=== PATIENT | male | born 1955 | race Caucasian/White ===

== ENCOUNTER 2016-12-27 10:37 | Outpatient (CLI) | payer MEDICARE, OTHER ==
--- NOTE | 2016-12-27 17:58 | XRAY Report ---
EXAM: LEFT KNEE RADIOGRAPHY EXAM DATE: 12/27/2016 11:10 AM. CLINICAL HISTORY: L KNEE PAIN AND POPPING. COMPARISON: None. TECHNIQUE: 3 views. FINDINGS: Bones: Normal. No fractures or bone lesions. Joints: Small joint effusion in the left knee. Soft Tissues: Normal. No soft tissue swelling. IMPRESSION: Small joint effusion. [facility] Referring Provider Line: [phone] SITE ID: [id number]
== END 2016-12-27 10:38 | disposition home or self-care (01) ==
LOC: DI 10:37
PROVIDERS: ATTEND Family Medicine
DX: M25.462 Effusion, left knee (principal)

== ENCOUNTER 2017-05-25 09:23 | Outpatient (CLI) | payer MEDICARE, OTHER ==
--- NOTE | 2017-05-25 22:52 | XRAY Report ---
EXAM: CHEST RADIOGRAPHY EXAM DATE: 05/25/2017 09:35 AM. CLINICAL HISTORY: COPD. COMPARISON: 11/24/2012. TECHNIQUE: 2 views. FINDINGS: Lungs/Pleura: Lungs are well-expanded. No evidence of consolidation or effusion. No pneumothorax. Sta ble left apical emphysematous bleb. Mediastinum: Heart and mediastinal contours are unremarkable. Other: Relatively stable opacity projecting over the T5 vertebral body on lateral view. This could re present a bone island. IMPRESSION: 1. Lungs are well expanded. 2. Stable left apical emphysematous bleb. 3. No acute intrathoracic plain film abnormality. [facility] Referring Provider Line: [phone] SITE ID: [id number]
== END 2017-05-25 09:24 | disposition home or self-care (01) ==
LOC: DI 09:23
PROVIDERS: ATTEND Internal Medicine
DX: J43.9 Emphysema, unspecified (principal)
CPT/HCPCS: 71020

== ENCOUNTER 2017-08-31 12:11 | Inpatient (IN) | payer MEDICARE, OTHER ==
[2017-08-31 13:03] LABS: BASOPHILS # (AUTO) 0.2 10^3/uL (0.0-0.1); EOSINOPHILS # (AUTO) 0.4 10^3/uL (0.0-0.7); EOSINOPHILS % (AUTO) 4.5 %; HGB - HEMOGLOBIN 13.5 g/dL (14.0-18.0); LYMPHOCYTES # (AUTO) 1.9 10^3/uL (1.5-3.5); LYMPHOCYTES % (AUTO) 20.9 %; MEAN CORPUSCULAR HEMOGLOBIN 32.6 pg (27.0-31.0); MEAN CORPUSCULAR HGB CONC 35.1 g/dL (32.0-36.0); MEAN CORPUSCULAR VOLUME 92.8 fL (80.0-94.0); MEAN PLATELET VOLUME 7.6 fL (7.4-11.4); MONOCYTES # (AUTO) 0.9 10^3/uL (0.0-1.0); MONOCYTES % (AUTO) 9.6 %; NEUTROPHILS # (AUTO) 5.6 10^3/uL (1.5-6.6); PLT - PLATELET COUNT 378 10^3/uL (130-450); RED BLOOD COUNT 4.15 10^6/uL (4.70-6.10); WHITE BLOOD COUNT 8.9 x10^3/uL (4.8-10.8)
[2017-08-31 13:14] LABS: ALBUMIN 3.8 g/dL (3.2-5.5); BILIRUBIN,TOTAL 0.8 mg/dL (0.2-1.0); CREATININE 0.9 mg/dL (0.6-1.2); TOTAL PROTEIN 7.8 g/dL (6.7-8.2)
--- NOTE | 2017-08-31 13:33 | ED Physician Documentation ---
PD HPI ABD PAIN - Stated complaint Stated Complaint: UPPER ABD PX - Chief complaint Chief Complaint: Abd Pain - History obtained from History obtained from: Patient, Family - History of Present Illness Timing - onset: How many days ago (2) Timing - duration: Days (2) Timing - details: Gradual onset Pain level max: 9 Pain level now: 2 Quality: Aching, Pain Location: Epigastric Radiation: Other (mid back) Improved by: Laying still Worsened by: Eating Associated symptoms: Nausea. No: Fever, Vomiting, Hematemesis, Diarrhea, Constipation, Melena, Hematochezia, Dysuria, Hematuria, Chest pain, Dizzy, Near syncope / syncope Similar symptoms before: Has not had sx before Recently seen: Not recently seen Review of Systems Ten Systems: 10 systems reviewed and negative Constitutional: denies: Fever, Chills Ears: denies: Ear pain Nose: denies: Rhinorrhea / runny nose, Congestion Throat: denies: Sore throat Cardiac: denies: Chest pain / pressure, Palpitations Respiratory: denies: Cough, Wheezing Skin: denies: Rash Musculoskeletal: denies: Neck pain, Back pain Neurologic: denies: Headache PD PAST MEDICAL HISTORY - Past Medical History Cardiovascular: Hypertension, Arrhythmia Respiratory: COPD, Shortness of breath Endocrine/Autoimmune: None GI: GERD, Colon polyps : Frequency HEENT: Chronic sinusitis Psych: Post traumatic stress disorder Musculoskeletal: Osteoarthritis, Chronic back pain - Past Surgical History Past Surgical History: Yes General: EGD, Colonoscopy Derm: Skin cancer surgery - Present Medications Home Medications: Ambulatory Orders Medication Instructions Recorded Confirmed Cholecalciferol (Vitamin D3) 1,000 unit PO DAILY 04/06/13 10/10/15 [Vitamin D] Diltiazem HCl [Diltiazem 24Hr Cd] 240 mg PO DAILY 04/06/13 08/31/17 EPINEPHrine [Epipen] 0.3 mg IM ONCE 04/06/13 10/10/15 Ibuprofen 800 mg PO Q6H PRN 04/06/13 10/10/15 Naproxen [Aleve] 500 mg PO Q6H PRN 04/06/13 10/10/15 Nortriptyline HCl 50 mg PO HS 04/06/13 08/31/17 Omeprazole 20 mg PO DAILY 04/06/13 08/31/17 Valacyclovir HCl [Valacyclovir] 400 mg PO BID 04/06/13 10/10/15 oxyCODONE [Roxicodone] 5 mg PO Q4-6H PRN #15 tablet 05/11/14 08/31/17 diazePAM [Valium] 2.5 mg PO Q8H PRN 08/31/17 08/31/17 hydroCHLOROthiazide 25 mg PO DAILY 08/31/17 08/31/17 [Hydrochlorothiazide] - Allergies Allergies/Adverse Reactions: Allergies Allergy/AdvReac Type Severity Reaction Status Date / Time morphine Allergy Severe Emesis Verified 08/31/17 19:12 latex Allergy Intermediate Rash Verified 08/31/17 12:31 pseudoephedrine HCl * Allergy Intermediate Rash Verified 08/31/17 12:31 [From Sudafed] bee sting AdvReac Severe Respiratory Uncoded 08/31/17 12:31 - Social History Does the pt smoke?: Yes Smoking Status: Current every day smoker Does the pt drink ETOH?: No Does the pt have substance abuse?: No - Immunizations Immunizations are current?: Yes Immunizations: TDAP current <10years - POLST Patient has POLST: No PD ED PE NORMAL - Vitals Vital signs reviewed: Yes - General General: Alert and oriented X 3, No acute distress - HEENT HEENT: Moist mucous membranes - Neck Neck: Supple, no meningeal sign - Cardiac Cardiac: RRR, Strong equal pulses - Respiratory Respiratory: No respiratory distress, Clear bilaterally - Abdomen Abdomen: Soft, Non distended, Other (TTP epigastric and RUQ. neg llamas's sign) - Back Back: No CVA TTP, No spinal TTP - Derm Derm: Warm and dry - Extremities Extremities: No edema - Neuro Neuro: Alert and oriented X 3 - Psych Psych: Normal mood, Normal affect Results - Vitals Vitals: Vital Signs - 24 hr 08/31/17 08/31/17 08/31/17 12:28 14:57 16:22 Temperature 36.2 C L Heart Rate 77 86 84 Respiratory 16 12 12 Rate Blood Pressure 113/68 120/79 128/77 O2 Saturation 98 97 100 Oxygen O2 Source Room air - EKG (time done) 1416 Rate: Rate (enter#) (77) Rhythm: NSR [employer]: Normal Intervals: Normal SD QRS: Normal Ischemia: Non specific changes - Labs Labs: Laboratory Tests 08/31/17 08/31/17 08/31/17 12:50 12:50 13:42 WBC 8.9 RBC 4.15 L Hgb 13.5 L Hct 38.5 L MCV 92.8 MCH 32.6 H MCHC 35.1 RDW 13.0 Plt Count 378 MPV 7.6 Neut # 5.6 Lymph # 1.9 [place] # 0.9 Eos # 0.4 Baso # 0.2 H Absolute Nucleated RBC 0.00 Nucleated RBC % 0.0 Sodium 138 Potassium 3.7 Chloride 97 L Carbon Dioxide 27 Anion Gap 14.0 H BUN 14 Creatinine 0.9 Estimated GFR (MDRD) 86 L Glucose 139 H Calcium 9.0 Total Bilirubin 0.8 AST 144 H ALT 86 H Alkaline Phosphatase 246 H Troponin I < 0.04 Total Protein 7.8 Albumin 3.8 Globulin 4.0 Albumin/Globulin Ratio 1.0 Lipase 359 H - Rads (name of study) RUQ US Radiology: Prelim report reviewed, EMP read contemporaneously, See rad report ( Hepatic steatosis. Cholelithiasis with wall thickening and pericholecystic fluid concerning for cholecystitis. Mildly dilated common bile duct. ) PD MEDICAL DECISION MAKING - ED course Complexity details: reviewed results, re-evaluated patient, considered differential, d/w patient, d/w family, d/w building consultant ED course: Patient is a 62-year-old male who presents to the emergency department with pancreatitis. Pain greatly improved in the emergency department without the addition of pain medications. Sounds as if he is having biliary colic, passing small stones that become lodged and then passed on their own. May have early mild cholecystitis, discussed the case with Dr. Andrade, surgery on-call who will place the patient in observation for reassessment in the morning to determine need for cholecystectomy. Patient declines any pain medication here. Discussed antibiotics with Dr. Andrade she will order them This document was made in part using voice recognition software. While efforts are made to proofread this document, sound alike and grammatical errors may occur. Departure - Departure Disposition: ED Place in Observation Clinical Impression: Biliary colic Pancreatitis Qualifiers: Chronicity: acute Pancreatitis type: biliary Acute pancreatitis complication: no infection or necrosis Qualified Code(s): K85.10 - Biliary acute pancreatitis without necrosis or infection Condition: Stable Discharge Date/Time: 08/31/17 18:29
[2017-08-31] MEDS ORDERED: SODIUM CHLORIDE 0.9% 1,000 ML IV ONE (15:09)
--- NOTE | 2017-08-31 17:38 | Ultrasound Report ---
EXAM: ABDOMEN ULTRASOUND LIMITED, RUQ EXAM DATE: 08/31/2017 05:12 PM. CLINICAL HISTORY: RUQ pain. COMPARISON: None. TECHNIQUE: Real-time scanning was performed with static images obtained. FINDINGS: Liver: Normal in size . Hyperechoic heterogeneous echotexture. 18.6 cm. Main portal vein flow: Hepato petal. Gallbladder: Multiple mobile gallstones. Abnormal wall thickening. No point tenderness. Sliver perich olecystic fluid. Biliary System: CBD measures 7 mm. Mildly dilated. Other: Visualized pancreas and right kidney are unremarkable. IMPRESSION: 1. Hepatic steatosis. 2. Cholelithiasis with wall thickening and pericholecystic fluid concerning for cholecystitis. 3. Mildly dilated common bile duct. [facility] Referring Provider Line: [phone] SITE ID: [id number]
[2017-08-31] MEDS ORDERED: ONDANSETRON ODT 4 MG TABLET TL PRN (17:41)
[2017-08-31] MEDS ORDERED: MORPHINE 2 MG/ML CARPUJECT IVP PRN (17:41)
[2017-08-31] MEDS ORDERED: SODIUM CHLORIDE FLUSH 0.9% 10 ML SYRINGE IVP PRN (17:41)
[2017-08-31] MEDS: LACTATED RINGERS 1,000 ML IV SCH (19:49)
[2017-08-31] MEDS: AMPICILLIN/SULBACTAM 3 GM in SODIUM CHLORIDE 0.9% MINIBAG 100 ML IV SCH (19:50)
[2017-08-31] MEDS: SODIUM CHLORIDE FLUSH 0.9% 10 ML SYRINGE IVP SCH (22:41)
[2017-09-01] MEDS: AMPICILLIN/SULBACTAM 3 GM in SODIUM CHLORIDE 0.9% MINIBAG 100 ML IV SCH ×4 (02:37→17:01)
[2017-09-01] MEDS: HYDROcod/ACETAM 5/325 MG TABLET PO PRN ×2 (03:26→17:01)
[2017-09-01] MEDS: SODIUM CHLORIDE FLUSH 0.9% 10 ML SYRINGE IVP SCH ×3 (03:46→18:58)
[2017-09-01 06:08] LABS: ALBUMIN 3.3 g/dL (3.2-5.5); ALBUMIN/GLOBULIN RATIO 0.9 (1.0-2.2); BILIRUBIN,TOTAL 3.3 mg/dL (0.2-1.0); CALCIUM 8.5 mg/dL (8.5-10.3); CREATININE 0.8 mg/dL (0.6-1.2); TOTAL PROTEIN 6.8 g/dL (6.7-8.2)
[2017-09-01 06:12] LABS: BASOPHILS # (AUTO) 0.1 10^3/uL (0.0-0.1); EOSINOPHILS # (AUTO) 0.1 10^3/uL (0.0-0.7); EOSINOPHILS % (AUTO) 1.6 %; HGB - HEMOGLOBIN 13.7 g/dL (14.0-18.0); LYMPHOCYTES # (AUTO) 0.9 10^3/uL (1.5-3.5); LYMPHOCYTES % (AUTO) 10.1 %; MEAN CORPUSCULAR HEMOGLOBIN 32.5 pg (27.0-31.0); MEAN CORPUSCULAR HGB CONC 33.5 g/dL (32.0-36.0); MEAN CORPUSCULAR VOLUME 96.9 fL (80.0-94.0); MEAN PLATELET VOLUME 8.5 fL (7.4-11.4); MONOCYTES % (AUTO) 11.1 %; NEUTROPHILS # (AUTO) 6.7 10^3/uL (1.5-6.6); NEUTROPHILS % (AUTO) 76.2 %; PLT - PLATELET COUNT 338 10^3/uL (130-450); RED BLOOD COUNT 4.22 10^6/uL (4.70-6.10); RED CELL DISTRIBUTION WIDTH 13.3 % (12.0-15.0); WHITE BLOOD COUNT 8.7 x10^3/uL (4.8-10.8)
[2017-09-01] MEDS: LACTATED RINGERS 1,000 ML IV SCH ×2 (06:30→19:01)
[2017-09-01] MEDS: FAMOTIDINE 20 MG TABLET PO SCH (09:07)
[2017-09-01] MEDS: hydroCHLOROthiazide 25 MG TABLET PO SCH (09:07)
[2017-09-01] MEDS: diltiaZEM CD 240 MG CAPSULE PO SCH (09:07)
[2017-09-01] MEDS: POLYETHYLENE GLYCOL 3350 17 GM PACKET PO SCH (09:07)
--- NOTE | 2017-09-01 11:57 | HISTORY & PHYSICAL EXAMINATION ---
Chief Complaint - Chief Complaint Chief Complaint: abdominal pain Abdominal Pain HPI - History of Present Illness HPI Comment/Other: This is a 62-year-old gentleman who presented to the emergency department yesterday with complaints of right upper quadrant and epigastric pain since 10 AM yesterday morning. He states he has had had similar but much less severe episodes for the past couple of years. Upon evaluation in the emergency department an ultrasound of the gallbladder was performed which demonstrated evidence of cholelithiasis without evidence of choledocholithiasis. His LFTs and lipase were noted to be elevated. A surgical consultation was obtained. Upon my evaluation of the patient he is resting in bed comfortably although he does continue to have persistent epigastric and right upper quadrant pain. He states his pain is a 3 out of 10 with pain medications. He denies nausea or vomiting. His repeat LFTs today indicate his bilirubin has increased to 3.9 and his lipase has normalized.His white blood cell count has remained normal. He does admit to heavy alcohol use in the past. He started drinking at the age of 15 and drinks between 3 and 6 glasses of hard liquor each night. He denies any episodes of withdrawal.He is followed by a procurement accountant and states that he underwent a liver biopsy approximately 3 years ago which she states was notable for fatty liver disease. I do not have these results available. PMH/PSH - Past Medical History Cardiovascular: positive: Hypertension, Arrhythmia Respiratory: positive: COPD, Shortness of breath Endocrine/Autoimmune: positive: None GI: positive: GERD, Colon polyps : positive: Frequency HEENT: positive: Chronic sinusitis Psych: positive: Post traumatic stress disorder Musculoskeletal: positive: Osteoarthritis, Chronic back pain Derm: positive: None MRSA Hx?: No - Past Surgical History General: positive: EGD, Colonoscopy Ortho: positive: Hip replacement Derm: positive: Skin cancer surgery Social & Family Hx - Social History Does the pt smoke?: No Smoking Status: Former smoker Does the pt drink ETOH?: No ETOH Use: Liquor (3-6 glasses of hard liquor daily) Does the pt have substance abuse?: No - POLST Patient has POLST: No Meds/Allgy - Home Medications Home Medications: Ambulatory Orders Medication Instructions Recorded Confirmed Cholecalciferol (Vitamin D3) 1,000 unit PO DAILY 04/06/13 10/10/15 [Vitamin D] Diltiazem HCl [Diltiazem 24Hr Cd] 240 mg PO DAILY 04/06/13 08/31/17 EPINEPHrine [Epipen] 0.3 mg IM ONCE 04/06/13 10/10/15 Ibuprofen 800 mg PO Q6H PRN 04/06/13 10/10/15 Naproxen [Aleve] 500 mg PO Q6H PRN 04/06/13 10/10/15 Nortriptyline HCl 50 mg PO HS 04/06/13 08/31/17 Omeprazole 20 mg PO DAILY 04/06/13 08/31/17 Valacyclovir HCl [Valacyclovir] 400 mg PO BID 04/06/13 10/10/15 oxyCODONE [Roxicodone] 5 mg PO Q4-6H PRN #15 tablet 05/11/14 08/31/17 diazePAM [Valium] 2.5 mg PO Q8H PRN 08/31/17 08/31/17 hydroCHLOROthiazide 25 mg PO DAILY 08/31/17 08/31/17 [Hydrochlorothiazide] - Allergies Allergies/Adverse Reactions: Allergies Allergy/AdvReac Type Severity Reaction Status Date / Time morphine Allergy Severe Emesis Verified 08/31/17 19:12 latex Allergy Intermediate Rash Verified 08/31/17 12:31 pseudoephedrine HCl * Allergy Intermediate Rash Verified 08/31/17 12:31 [From [facility]] bee sting AdvReac Severe Respiratory Uncoded 08/31/17 12:31 Review of Systems - Constitutional Constitutional: denies: Fever - Respiratory Respiratory: denies: Cough, SOB at rest - Gastrointestinal Gastrointestinal: reports: Abdominal pain Exam - Vital Signs Reviewed Vital Signs: Yes Vital Signs: Vital Signs x48h Temp Pulse Resp BP Pulse Ox 09/01/17 08:21 37.0 C 86 16 135/79 H 95 09/01/17 05:05 36.9 C 102 H 18 144/86 H 95 - Physical Exam Respiratory: positive: No respiratory distress Cardiovascular: positive: Regular rate & rhythm Abdomen: positive: Other (tender to palpation in epigastric and right upper quadrant. no gaurding, no rebound tenderness.) Extremities: positive: No pedal edema Neurologic/Psychiatric: positive: Oriented x3 Results - Lab Results Fish Bones: 09/01/17 05:34 09/01/17 05:34 Other Lab Results: Lab Results x24hrs 09/01/17 09/01/17 Range/Units 05:34 05:34 WBC 8.7 (4.8-10.8) x10^3/uL RBC 4.22 L (4.70-6.10) 10^6/uL Hgb 13.7 L (14.0-18.0) g/dL Hct 40.9 L (42.0-52.0) % MCV 96.9 H (80.0-94.0) fL MCH 32.5 H (27.0-31.0) pg MCHC 33.5 (32.0-36.0) g/dL RDW 13.3 (12.0-15.0) % Plt Count 338 (130-450) 10^3/uL MPV 8.5 (7.4-11.4) fL Neut # 6.7 H (1.5-6.6) 10^3/uL Lymph # 0.9 L (1.5-3.5) 10^3/uL [place] # 1.0 (0.0-1.0) 10^3/uL Eos # 0.1 (0.0-0.7) 10^3/uL Baso # 0.1 (0.0-0.1) 10^3/uL Absolute Nucleated RBC 0.00 x10^3/uL Nucleated RBC % 0.0 /100WBC Sodium 135 (135-145) mmol/L Potassium 3.4 L (3.5-5.0) mmol/L Chloride 100 L (101-111) mmol/L Carbon Dioxide 23 (21-32) mmol/L Anion Gap 12.0 (6-13) BUN 8 (6-20) mg/dL Creatinine 0.8 (0.6-1.2) mg/dL Estimated GFR (MDRD) 99 (>89) Glucose 108 H (70-100) mg/dL Calcium 8.5 (8.5-10.3) mg/dL Total Bilirubin 3.3 H (0.2-1.0) mg/dL AST 228 H (10-42) IU/L ALT 210 H (10-60) IU/L Alkaline Phosphatase 323 H (42-121) IU/L Total Protein 6.8 (6.7-8.2) g/dL Albumin 3.3 (3.2-5.5) g/dL Globulin 3.5 (2.1-4.2) g/dL Albumin/Globulin Ratio 0.9 L (1.0-2.2) Lipase 32 (22-51) U/L ARRA - Anticipated LOS Anticipated Stay Length: Less than 2 midnights Impression/Plan - Problem List Problem List: gallstone pancreatitis - The patient's pancreatitis has resolved demonstrated by normalization of his lipase. His abdominal pain additionally has improved but is still present. The patient's bilirubin and LFTs have increased, however, and I am concerned for possible choledocholithiasis. An MRCP will be obtained. If choledocholithiasis is present he will require transfer for an ERCP prior to operative intervention. If not he will require operative cholecystectomy.We will continue antibiotics in the interim.
--- NOTE | 2017-09-01 13:19 | MRI Preliminary Report ---
Exam: MRI MRCP W/O IMPRESSION: 1. No MR evidence of choledocholithiasis. 2. Upper normal size mid common bile duct similar compared to ultrasound from 08/31/2017. No signific ant intrahepatic ductal dilatation. 3. Cholelithiasis and mild pericholecystic fluid findings which may represent developing cholecystiti s. 4. Left renal cyst. 5. Mild fatty liver. [facility] SITE ID: [id number]
--- NOTE | 2017-09-01 14:27 | MRI Report ---
EXAM: MR ABDOMEN WITHOUT CONTRAST (MR CHOLANGIOPANCREATOGRAPHY) EXAM DATE: 09/01/2017 12:05 PM. CLINICAL HISTORY: Elevated bilirubin, gallstone pancreatitis. COMPARISON: CT from 12/22/2015. Ultrasound from 08/31/2017. TECHNIQUE: Multiplanar breath-hold T1 and T2 sequences obtained through the abdomen on an MR scanner. Dedicated 2D and 3D MRCP sequences obtained through the biliary and pancreatic ducts. No intravenous contrast given. FINDINGS: Lung Bases: Right basilar scar/atelectasis. Heart size is upper normal. Tiny hiatal hernia. Liver: Slight drop out of signal seen in the liver consistent with fatty liver. No definite hepatic l esions are identified. No significant intrahepatic ductal dilatation. CBD: The common bile duct is upper normal in prominence. No definite filling defect is seen to sugges t choledocholithiasis. The CBD is upper normal mildly prominent measuring 7-8 mm in diameter. Gallbladder: Multiple gallstones are seen without the gallbladder. Gallbladder is mildly distended an d there is a small volume of pericholecystic fluid. Trace pericholecystic stranding noted. Pancreas: Pancreas is atrophic. No pancreatic lesion on these noncontrast images. No significant gomez pancreatic edema. The pancreatic duct measures 2.5-3 mm in diameter without definitive evidence for s tricture or abrupt cutoff. Spleen: The spleen appears normal. Kidneys and Adrenals: Normal in signal intensity of the kidneys. No hydronephrosis. Left renal cyst i s present measuring up to 2.5 cm which may be mildly complex. The adrenals appear normal. Bowel: Stomach is mildly distended. Included portions of the small bowel and colon are unremarkable. No significant distention of the small bowel or colon is evident. Retroperitoneum: Abdominal aorta and IVC are normal in caliber. No enlarged retroperitoneal lymph nod es. Degenerative changes of the thoracic and lumbar spine. IMPRESSION: 1. No MR evidence of choledocholithiasis. 2. Upper normal in size, mid common bile duct similar compared to ultrasound from 08/31/2017. No sign ificant intrahepatic ductal dilatation. 3. Cholelithiasis and mild pericholecystic fluid findings which may represent developing cholecystiti s. 4. Left renal cyst. 5. Mild fatty liver. Findings discussed with Dr. Andrade at 1317 hrs. On 09/01/2017. [facility] Referring Provider Line: [phone] SITE ID: [id number]
[2017-09-02] MEDS: AMPICILLIN/SULBACTAM 3 GM in SODIUM CHLORIDE 0.9% MINIBAG 100 ML IV SCH ×4 (00:07→17:25)
[2017-09-02] MEDS: SODIUM CHLORIDE FLUSH 0.9% 10 ML SYRINGE IVP SCH ×3 (02:14→20:29)
[2017-09-02] MEDS: LACTATED RINGERS 1,000 ML IV SCH ×2 (05:26→09:54)
[2017-09-02] MEDS: POLYETHYLENE GLYCOL 3350 17 GM PACKET PO SCH (07:55)
[2017-09-02] MEDS: FAMOTIDINE 20 MG TABLET PO SCH (08:14)
[2017-09-02] MEDS: hydroCHLOROthiazide 25 MG TABLET PO SCH (08:14)
[2017-09-02] MEDS: diltiaZEM CD 240 MG CAPSULE PO SCH (08:14)
[2017-09-02 13:33] LABS: ALBUMIN 3.7 g/dL (3.2-5.5); BILIRUBIN,TOTAL 2.4 mg/dL (0.2-1.0); TOTAL PROTEIN 7.7 g/dL (6.7-8.2)
[2017-09-02] MEDS ORDERED: LACTATED RINGERS 200 ML IV ONE (16:36)
[2017-09-02] MEDS ORDERED: LACTATED RINGERS 1,000 ML IV ONE ×2 (16:55→18:54)
[2017-09-02] MEDS ORDERED: BUPIVACAINE 0.25%-EPI 1:200000 PF 10 ML VIAL SUBQ ONE ×2 (16:55)
[2017-09-02] MEDS ORDERED: ROCURONIUM 50 MG/5 ML VIAL IVP ONE (18:16)
[2017-09-02] MEDS ORDERED: MIDAZOLAM 2 MG/2 ML VIAL IVP ONE (18:16)
[2017-09-02] MEDS ORDERED: GLYCOPYRROLATE 1 MG/5 ML VIAL IVP ONE (18:16)
[2017-09-02] MEDS ORDERED: PROPOFOL 200 MG/20 ML VIAL IVP ONE (18:16)
[2017-09-02] MEDS ORDERED: ACETAMINOPHEN 1,000 MG/100 ML 100 ML IV ONE (18:16)
[2017-09-02] MEDS ORDERED: ONDANSETRON 4 MG/2 ML VIAL IVP ONE (18:16)
[2017-09-02] MEDS ORDERED: fentaNYL 100 MCG/2 ML VIAL IVP ONE (18:16)
[2017-09-02] MEDS ORDERED: NEOSTIGMINE 1 MG/1 ML 10 ML MDV IVP ONE (18:16)
[2017-09-02] MEDS ORDERED: ceFAZolin 1 GM VIAL IV ONE (18:16)
--- NOTE | 2017-09-02 18:18 | POST OP PROGRESS NOTE ---
Subjective - General Admit Date: 09/01/17 Procedure Date: 09/02/17 Post Op Days: 0 Procedure Performed: Laparoscopic cholecystectomy, liver biopsy - Other Other Information/Narrative: Procedure Performed: Laparoscopic cholecystectomy, TAP block Preoperative diagnosis: Gallstone pancreatitis Postoperative diagnosis: gallstone pancreatitis, acute cholecystitis Indication for procedure: This is a 62 year old presenting with gallstone pancreatitis. His pancreatitis has resolved and an MRCP demonstrated no evidence of stones in his CBD. Anesthesia: General Surgeon: Dr. Andrade Findings: After obtaining informed consent the patient was brought into the operating room and positioned on the operating table in the supine position taking noted pressure points. The patient was intubated by anesthesia. Perioperative antibiotics were administered. The patient was then prepped and draped in the usual sterile fashion and a timeout was taken according to protocol. An infraumbilical 1 cm incision was created and deepened down to the umbilical stalk. The stalk was grasped and elevated and the veres needle inserted. The abdominal cavity was insufflated. A 5 mm incision was created in the patient's epigastric region to the right of the midline. Using a 5 mm Optiview trocar the abdominal cavity was entered. The Veress needle was removed and exchanged for a 12 mm port. 2 additional 5 mm ports were then placed along the patient's right lateral abdominal wall. The gallbladder was grasped and retracted over the dome of the liver. The gallbladder was noted to be adherent to the underlying omentum. These structures were carefully dissected off the gallbladder with blunt dissection. There was a fair amount of bleeding from the omentum due to the inflammation. The gallbladder was noted to be very inflamed. The calot's triangle was also very fatty and inflamed. The liver was enlarged with the appearance of fatty liver infiltration. The fundus of the gallbladder was grasped and retracted medially exposing the lateral attachments. The lateral attachments were carefully taken down working my way laterally to medially exposing the cystic duct. The cystic duct was circumferentially dissected free from surrounding fatty tissue. The cystic artery was similarly dissected out. The base of the gallbladder was dissected off of the liver bed and the critical view was obtained. The cystic duct was clipped with 2 clips placed proximally 1 distally and divided. The cystic artery was divided in a similar manner. The gallbladder was then removed from the gallbladder fossa with electrocautery. There was a posterior arterial branch in the mid posterior portion of the gallbladder which bled as the gallbladder was being dissected of the fossa. This was controlled with hemoclips. There was no spillage of bile and stones during the process of gallbladder removal. The gallbladder fossa was inspected for any signs of bleeding and nhemostasis was achieved with electrocautery The gallbladder was then placed in a specimen bag and removed after extending the fascial and skin incisions with a blunt clamp to accommodate the large gallbladder and large stones. The liver was agian inspected and all blood products evacuated. The gallbladder fossa was again inspected and no active bleeding was apparent. A liver biopsy was then performed with the core needle automatic biopsy needle. Bleeding from this site was controlled with cautery The abdominal cavity was then allowed to desufflate and all trochars were removed. The umbilical fascial incision was closed with a running 0 Vicryl suture. 30 cc of lidocaine was administered. The skin incisions were closed with 4-0 Monocryl. The patient was subsequently extubated and taken to the recovery room in stable condition. Estimated blood loss: 30 Complications: None Specimen: Gallbladder, liver biopsy
[2017-09-02] MEDS: fentaNYL 100 MCG/2 ML VIAL ONE ×2 (18:27→18:38)
[2017-09-02] MEDS ORDERED: HYDROmorphone 1 MG/ML SYRINGE ONE (18:49)
[2017-09-02] MEDS: HYDROcod/ACETAM 5/325 MG TABLET PO PRN (20:27)
[2017-09-02] MEDS: TAMSULOSIN 0.4 MG CAPSULE PO SCH (22:52)
[2017-09-03] MEDS: HYDROcod/ACETAM 5/325 MG TABLET PO PRN (03:45)
[2017-09-03] MEDS: SODIUM CHLORIDE FLUSH 0.9% 10 ML SYRINGE IVP SCH (05:21)
[2017-09-03 05:39] LABS: BASOPHILS # (AUTO) 0.1 10^3/uL (0.0-0.1); BASOPHILS % (AUTO) 1.2 %; EOSINOPHILS # (AUTO) 0.3 10^3/uL (0.0-0.7); EOSINOPHILS % (AUTO) 5.1 %; HGB - HEMOGLOBIN 12.9 g/dL (14.0-18.0); LYMPHOCYTES # (AUTO) 1.2 10^3/uL (1.5-3.5); LYMPHOCYTES % (AUTO) 18.1 %; MEAN CORPUSCULAR HGB CONC 32.8 g/dL (32.0-36.0); MEAN CORPUSCULAR VOLUME 97.3 fL (80.0-94.0); MEAN PLATELET VOLUME 7.8 fL (7.4-11.4); MONOCYTES # (AUTO) 0.8 10^3/uL (0.0-1.0); MONOCYTES % (AUTO) 12.5 %; NEUTROPHILS # (AUTO) 4.2 10^3/uL (1.5-6.6); NEUTROPHILS % (AUTO) 63.1 %; PLT - PLATELET COUNT 313 10^3/uL (130-450); RED BLOOD COUNT 4.04 10^6/uL (4.70-6.10); RED CELL DISTRIBUTION WIDTH 13.2 % (12.0-15.0); WHITE BLOOD COUNT 6.6 x10^3/uL (4.8-10.8)
[2017-09-03 07:56] VITALS: BP 117/72
[2017-09-03] MEDS: FAMOTIDINE 20 MG TABLET PO SCH (08:05)
[2017-09-03] MEDS: diltiaZEM CD 240 MG CAPSULE PO SCH (08:05)
[2017-09-03] MEDS: POLYETHYLENE GLYCOL 3350 17 GM PACKET PO SCH ×2 (08:05→09:10)
[2017-09-03] MEDS: TAMSULOSIN 0.4 MG CAPSULE PO SCH (08:05)
[2017-09-03] MEDS: hydroCHLOROthiazide 25 MG TABLET PO SCH (08:05)
--- NOTE | 2017-09-03 08:38 | DISCHARGE SUMMARY ---
"Discharge Summary Admit Date: 08/31/17 Discharge Date: 09/03/17 Discharging Provider: Yisel Condition at Discharge: Stable Discharge Disposition: Home, Self Care - DIAGNOSES Admission Diagnoses: gallstone pancreatitis Discharge Diagnoses with Status of Each Condition: gallstone pancreatitis: resolved Acute cholecystitis: resolved - HPI History of Present Illness: This is a 62-year-old gentleman who underwent an incision and drainage in my office last Friday but has had a copious amount of drainage from the drainage site since the procedure. He has a history of a retroperitoneal and left flank abscess approximately 2 years ago with a chronic wound requiring VAC and packing for approximately a year. This recurred about a month ago. - CONSULTS | PROCEDURES Procedures: Incision and drainage of left flank abscess - HOSPITAL COURSE Hospital Course: The patient underwent an incision and drainage in the operating room on day of admission. Clearish yellow fluid was seen, however, no purulent fluid was evacuated. Cultures were obtained. The abscess cavity was noted to be tracking towards the retroperitoneum. 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 This was performed in [place]. He states that at that time he was an alcohol abuser. Currently he only drinks occasionally. The patient was Placed on IV antibiotics during this hospitalization. His cultures from the office procedure were noted to contain Klebsiella pneumonia and E. coli. Both were sensitive to Bactrim and Unasyn. Wound consultation was obtained and a VAC therapy was initiated. There was a delay in the delivery of the home VAC system, however, we eventually were able to get the home VAC set up and he is ready for discharge to home with a plan for VAC changes on Friday. I will plan for him to undergo an MRCP and possibly a CT scan with enteric contrast to delineate the source of the recurrent retroperitoneal abscess. I suspect that this is secondary to either an enteric or pancreatic leak which appears to be well controlled via a fistula formation. He does not demonstrate any systemic signs of infection. The patient will be discharged home on a two-week course of Bactrim. - ALLERGIES Allergies/Adverse Reactions: Allergies Allergy/AdvReac Type Severity Reaction Status Date / Time morphine Allergy Severe Emesis Verified 08/31/17 19:12 latex Allergy Intermediate Rash Verified 08/31/17 12:31 pseudoephedrine HCl * Allergy Intermediate Rash Verified 08/31/17 12:31 [From [facility]] bee sting AdvReac Severe Respiratory Uncoded 08/31/17 12:31 - MEDICATIONS Home Medications: Ambulatory Orders Medication Instructions Recorded Confirmed Cholecalciferol (Vitamin D3) 1,000 unit PO DAILY 04/06/13 09/01/17 [Vitamin D] Diltiazem HCl [Diltiazem 24Hr Cd] 240 mg PO DAILY 04/06/13 08/31/17 EPINEPHrine [Epipen] 0.3 mg IM ONCE 04/06/13 09/01/17 Ibuprofen 600 mg PO TID PRN 04/06/13 09/01/17 Nortriptyline HCl 50 mg PO HS 04/06/13 08/31/17 Omeprazole 20 mg PO DAILY 04/06/13 08/31/17 oxyCODONE [Roxicodone] 5 mg PO Q4-6H PRN #15 tablet 05/11/14 08/31/17 diazePAM [Valium] 2.5 mg PO Q8H PRN 08/31/17 08/31/17 hydroCHLOROthiazide 25 mg PO DAILY 08/31/17 08/31/17 [Hydrochlorothiazide] Acyclovir 400 mg PO DAILY 09/01/17 09/01/17 - PHYSICAL EXAM AT DISCHARGE General Appearance: positive: No acute distress Respiratory: positive: No respiratory distress Cardiovascular: positive: Regular rate & rhythm Abdomen: positive: Non-tender, No distention Back: positive: Other (flank dressing cleand and dry) Neurologic/Psychiatric: positive: Oriented x3 - LABS Result Diagrams: 09/03/17 05:15 09/01/17 05:34 - TIME SPENT Time Spent in Discharge (Minutes): 30"
--- NOTE | 2017-09-03 08:40 | Discharge Plan ---
Discharge Plan Disposition: 01 Home, Self Care Condition: Stable Diet: Regular Activity Restrictions: Activity as Tolerated Shower Restrictions: Yes (no tub bathing 1 wk) Driving Restrictions: Yes (not while on narcotics) No Smoking: If you smoke, Please STOP! Call for help. Follow-up with: STEPHANIE HOUSE MD [Provider Admit Priv/Credential] - 4 Weeks
--- NOTE | 2017-09-11 13:12 | DISCHARGE SUMMARY ---
Discharge Summary Admit Date: 08/31/17 Discharge Date: 09/03/17 Discharging Provider: Lupe Condition at Discharge: Stable Discharge Disposition: 01 Home, Self Care - HPI History of Present Illness: This is a 62-year-old gentleman who presented to the emergency department with abdominal pain. Lab work revealed elevated LFTs and an elevated lipase. An ultrasound demonstrated cholelithiasis without evidence of cholecystitis. He was subsequently admitted to the surgical service with a diagnosis of gallstone pancreatitis. - HOSPITAL COURSE Hospital Course: On hospital day #1 the patient's total bilirubin increased to 3.3. Subsequently an MRCP was obtained which did not demonstrate any choledocholithiasis. He was subsequently scheduled for a laparoscopic cholecystectomy. He underwent the surgery uneventfully, however, he was kept in the hospital for 1 additional day due to the extensive inflammation of the gallbladder. At the time of the procedure liver biopsy was also performed due to his history of severe alcohol abuse. On postoperative day #1 the patient was doing well. He is tolerating regular diet, ambulating and his pain was well -controlled on oral pain medications. He was discharged home. - ALLERGIES Allergies/Adverse Reactions: Allergies Allergy/AdvReac Type Severity Reaction Status Date / Time morphine Allergy Severe Emesis Verified 08/31/17 19:12 latex Allergy Intermediate Rash Verified 08/31/17 12:31 pseudoephedrine HCl * Allergy Intermediate Rash Verified 08/31/17 12:31 [From Sudafed] bee sting AdvReac Severe Respiratory Uncoded 08/31/17 12:31 - MEDICATIONS Home Medications: Ambulatory Orders Medication Instructions Recorded Confirmed Cholecalciferol (Vitamin D3) 1,000 unit PO DAILY 04/06/13 09/01/17 [Vitamin D] Diltiazem HCl [Diltiazem 24Hr Cd] 240 mg PO DAILY 04/06/13 08/31/17 EPINEPHrine [Epipen] 0.3 mg IM ONCE 04/06/13 09/01/17 Ibuprofen 600 mg PO TID PRN 04/06/13 09/01/17 Nortriptyline HCl 50 mg PO HS 04/06/13 08/31/17 Omeprazole 20 mg PO DAILY 04/06/13 08/31/17 oxyCODONE [Roxicodone] 5 mg PO Q4-6H PRN #15 tablet 05/11/14 08/31/17 diazePAM [Valium] 2.5 mg PO Q8H PRN 08/31/17 08/31/17 hydroCHLOROthiazide 25 mg PO DAILY 08/31/17 08/31/17 [Hydrochlorothiazide] Acyclovir 400 mg PO DAILY 09/01/17 09/01/17 - PHYSICAL EXAM AT DISCHARGE General Appearance: positive: No acute distress Respiratory: positive: Breath sounds nml Cardiovascular: positive: Regular rate & rhythm Abdomen: positive: Other (Incisions clean dry and intact) Extremities: positive: No pedal edema Neurologic/Psychiatric: positive: Oriented x3 - LABS Result Diagrams: 09/03/17 05:15 09/01/17 05:34 - FOLLOW UP Follow Up: Patient is to follow-up with Dr. Andrade in 4 weeks postoperatively. - TIME SPENT Time Spent in Discharge (Minutes): 30
== END 2017-09-03 09:20 | disposition home or self-care (01) | DRG 417 ==
LOC: ED 12:11 → OBS 17:41 → MS2 09-01 14:40 → OBSVTOIN 09-01 15:54
PROVIDERS: ADMIT Surgery; ATTEND Surgery
PROC: 0FT44ZZ Resection of Gallbladder, Percutaneous Endoscopic Approach (ICD-10-PCS; principal; 2017-09-02 15:30)
PROC: 0FB04ZX Excision of Liver, Percutaneous Endoscopic Approach, Diagnostic (ICD-10-PCS; 2017-09-02 15:30)
DX: K80.00 Calculus of gallbladder with acute cholecystitis without obstruction (principal); K85.10 Biliary acute pancreatitis without necrosis or infection; F10.11 Alcohol abuse, in remission; J44.9 Chronic obstructive pulmonary disease, unspecified; I10 Essential (primary) hypertension; K21.9 Gastro-esophageal reflux disease without esophagitis; R35.0 Frequency of micturition; I49.9 Cardiac arrhythmia, unspecified; G89.29 Other chronic pain; M54.9 Dorsalgia, unspecified; M19.90 Unspecified osteoarthritis, unspecified site; F43.10 Post-traumatic stress disorder, unspecified; J32.8 Other chronic sinusitis; Z79.891 Long term (current) use of opiate analgesic; Z79.899 Other long term (current) drug therapy; Z96.649 Presence of unspecified artificial hip joint; Z85.828 Personal history of other malignant neoplasm of skin; Z87.891 Personal history of nicotine dependence; Z72.89 Other problems related to lifestyle
CPT/HCPCS: 36415; 51701; 74181; 76705; 80053; 80076; 83690; 84484; 85025; 93005; 96361; 96365; 96366; 99283; 99285

== ENCOUNTER 2019-09-10 12:54 | Outpatient (CLI) | payer MEDICARE, OTHER ==
--- NOTE | 2019-09-10 16:39 | XRAY Report ---
Reason: ACUTE BRONCHITIS Procedure Date: 09/10/2019 Accession Number: [id number] / [id number] Procedure: XR - Chest 2 View X-Ray CPT Code: 06526 Final Report FULL RESULT: EXAM: CHEST RADIOGRAPHY EXAM DATE: 09/10/2019 01:12 PM. CLINICAL HISTORY: ACUTE BRONCHITIS. COMPARISON: CHEST 2 VIEW PA/LAT 05/25/2017 9:27 AM. TECHNIQUE: 2 views. FINDINGS: Lungs/Pleura: Focal density projects to the right upper lobe measuring at least 3.4 cm. Mediastinum: Heart and mediastinal contours are unremarkable. Other: None. IMPRESSION: Focal rounded density in the right upper lobe measuring up to 3.4 cm which is concerning for a pulmonary lesion. Consider chest CT with contrast for further evaluation as an underlying neoplasm cannot be excluded. This is new from the prior examination. RADIA
== END 2019-09-10 12:55 | disposition home or self-care (01) ==
LOC: DI 12:54
PROVIDERS: ATTEND Family Medicine
DX: R91.8 Other nonspecific abnormal finding of lung field (principal); J20.9 Acute bronchitis, unspecified
CPT/HCPCS: 71046

== ENCOUNTER 2019-09-16 08:23 | Emergency (ER) | payer MEDICARE, OTHER ==
[2019-09-16] MEDS ORDERED: KETOROLAC 30 MG/ML VIAL IVP STA (09:23)
[2019-09-16] MEDS ORDERED: DEXAMETHASONE 10 MG/ML VIAL IVP STA (09:23)
[2019-09-16] MEDS ORDERED: IOVERSOL 320 100 ML VIAL IVP ONE ×2 (09:28→10:56)
--- NOTE | 2019-09-16 09:39 | XRAY Report ---
Reason: shortness of breath, new rt lung mass per pt Procedure Date: 09/16/2019 Accession Number: [id number] / [id number] Procedure: XR - Chest 2 View X-Ray CPT Code: 14450 Final Report FULL RESULT: EXAM: CHEST RADIOGRAPHY EXAM DATE: 09/16/2019 09:23 AM. CLINICAL HISTORY: Shortness of breath, new right lung mass per patient. COMPARISON: CHEST 2 VIEW 09/10/2019 1:07 PM. TECHNIQUE: 2 views. FINDINGS: Lungs/Pleura: There is a right-sided pleural effusion with right basal atelectasis. A poorly defined area of soft tissue density in the right mid zone is most likely still present, abutting the transverse fissure. The finding is nonspecific and may indicate consolidation, however, a neoplasm cannot be excluded. The left lung appears unremarkable. Mediastinum: Heart and mediastinal contours are unremarkable. Other: None. IMPRESSION: 1. Right-sided pleural effusion with right basal atelectasis. 2. Right mid zone lesion seen on the prior x-ray, is still present. The differential diagnosis includes neoplasia and consolidation. RADIA
[2019-09-16 10:19] LABS: BASOPHILS # (AUTO) 0.1 10^3/uL (0.0-0.1); BASOPHILS % (AUTO) 1.1 %; EOSINOPHILS # (AUTO) 0.1 10^3/uL (0.0-0.7); EOSINOPHILS % (AUTO) 0.7 %; LYMPHOCYTES # (AUTO) 1.1 10^3/uL (1.5-3.5); MEAN CORPUSCULAR HEMOGLOBIN 31.4 pg (27.0-31.0); MEAN CORPUSCULAR HGB CONC 33.2 g/dL (32.0-36.0); MEAN CORPUSCULAR VOLUME 94.6 fL (80.0-94.0); MEAN PLATELET VOLUME 8.6 fL (7.4-11.4); MONOCYTES # (AUTO) 1.2 10^3/uL (0.0-1.0); NEUTROPHILS # (AUTO) 9.6 10^3/uL (1.5-6.6); NEUTROPHILS % (AUTO) 78.3 %; PLT - PLATELET COUNT 619 10^3/uL (130-450); RED BLOOD COUNT 4.46 10^6/uL (4.70-6.10); RED CELL DISTRIBUTION WIDTH 13.2 % (12.0-15.0); WHITE BLOOD COUNT 12.3 x10^3/uL (4.8-10.8)
[2019-09-16 10:36] LABS: ALBUMIN 3.8 g/dL (3.2-5.5); ALBUMIN/GLOBULIN RATIO 0.8 (1.0-2.2); BILIRUBIN,TOTAL 0.7 mg/dL (0.2-1.0); CALCIUM 8.7 mg/dL (8.5-10.3); CREATININE 0.8 mg/dL (0.6-1.2); TOTAL PROTEIN 8.4 g/dL (6.7-8.2)
[2019-09-16 10:44] LABS: INR 1.1 (0.8-1.2); PT - PROTHROMBIN TIME 12.9 secs (9.9-12.6)
[2019-09-16] MEDS ORDERED: cefTRIAXone 1 GM in SODIUM CHLORIDE 0.9% MINIBAG 100 ML IV STA (10:53)
--- NOTE | 2019-09-16 10:55 | ED Physician Documentation ---
PD HPI CHEST PAIN - Stated complaint Stated Complaint: SOA - Chief complaint Chief Complaint: Resp - History obtained from History obtained from: Patient, Family - History of Present Illness Timing - duration: Weeks Timing - details: Gradual onset, Still present Quality: Sharp, Pain Location: Right chest Radiation: Back Improved by: Rest Worsened by: Exertion, Inspiration, Movement, Palpation Associated symptoms: Shortness of air, Nausea, Cough Similar symptoms before: Has not had sx before Recently seen: Clinic Review of Systems Constitutional: reports: Fever, Chills, Myalgias, Fatigue Eyes: denies: Decreased vision Ears: denies: Ear pain Nose: reports: Congestion. denies: Rhinorrhea / runny nose Throat: denies: Sore throat Cardiac: reports: Chest pain / pressure. denies: Palpitations, Pedal edema, C care home pain Respiratory: reports: Dyspnea, Cough, Wheezing GI: denies: Abdominal Pain, Nausea, Vomiting : denies: Dysuria PD PAST MEDICAL HISTORY - Past Medical History Past Medical History: Yes Cardiovascular: Hypertension, Arrhythmia Respiratory: COPD, Shortness of breath, Other Endocrine/Autoimmune: None GI: GERD, Colon polyps : Frequency HEENT: Chronic sinusitis Psych: Post traumatic stress disorder Musculoskeletal: Osteoarthritis, Chronic back pain Derm: None Other Past Medical History: new dx rt lung mass - Past Surgical History Past Surgical History: Yes General: Cholecystectomy, Colonoscopy, EGD Ortho: Hip replacement Derm: Skin cancer surgery - Present Medications Home Medications: Ambulatory Orders Medication Instructions Recorded Confirmed Cholecalciferol (Vitamin D3) 1,000 unit PO DAILY 04/06/13 09/01/17 [Vitamin D] EPINEPHrine [Epipen] 0.3 mg IM ONCE 04/06/13 09/01/17 Nortriptyline HCl 50 mg PO HS 04/06/13 08/31/17 Omeprazole 20 mg PO DAILY 04/06/13 08/31/17 hydroCHLOROthiazide 25 mg PO DAILY 08/31/17 08/31/17 [Hydrochlorothiazide] Aspirin 81 mg DAILY 09/16/19 09/16/19 Azithromycin [Zithromax] 250 mg PO DAILY #6 tablet 09/16/19 Hydrocodone/Acetaminophen 1 - 2 each PO Q6H PRN #14 tablet 09/16/19 [Hydrocodon-Acetaminophen 5-325] Potassium &Magnesium Aspartate [Ra 2 tab QPM 09/16/19 09/16/19 Potassium-Magnesium Asp 250] Simvastatin 5 mg 09/16/19 Valacyclovir HCl [Valtrex] 400 mg DAILY 09/16/19 09/16/19 diltiaZEM CD [Cardizem Cd] 240 mg DAILY 09/16/19 09/16/19 - Allergies Allergies/Adverse Reactions: Allergies Allergy/AdvReac Type Severity Reaction Status Date / Time morphine Allergy Severe Emesis Verified 09/16/19 08:41 latex Allergy Intermediate Rash Verified 09/16/19 08:41 pseudoephedrine HCl * Allergy Intermediate Rash Verified 09/16/19 08:41 [From Sudafed] bee sting AdvReac Severe Respiratory Uncoded 08/31/17 12:31 - Social History Does the pt smoke?: No Smoking Status: Never smoker Does the pt drink ETOH?: No Does the pt have substance abuse?: No - Immunizations Immunizations are current?: Yes Immunizations: TDAP current <10years - POLST Patient has POLST: No PD ED PE NORMAL - Vitals Vital signs reviewed: Yes (tcahy and hypertensive) - General General: Alert and oriented X 3, Well developed/nourished, Other (splinting with each breath appears uncomfortable. 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, No motor deficit, No sensory deficit, Normal speech Eye Opening: Spontaneous Motor: Obeys Commands Verbal: Oriented GCS Score: 15 - Psych Psych: Normal mood, Normal affect Results - Vitals Vitals: Vital Signs - 24 hr 09/16/19 09/16/19 08:29 11:58 Temperature 36.7 C Heart Rate 112 H 97 Respiratory 20 18 Rate Blood Pressure 145/77 H 124/76 O2 Saturation 93 93 Oxygen O2 Source Room air - Labs Labs: Laboratory Tests 09/16/19 09/16/19 09/16/19 10:06 10:06 10:06 WBC 12.3 H RBC 4.46 L Hgb 14.0 Hct 42.2 MCV 94.6 H MCH 31.4 H MCHC 33.2 RDW 13.2 Plt Count 619 H MPV 8.6 Neut # (Auto) 9.6 H Lymph # (Auto) 1.1 L [place] # (Auto) 1.2 H Eos # (Auto) 0.1 Baso # (Auto) 0.1 Absolute Nucleated RBC 0.00 Nucleated RBC % 0.0 PT 12.9 H INR 1.1 Sodium 132 L Potassium 3.9 Chloride 93 L Carbon Dioxide 27 Anion Gap 12.0 BUN 7 Creatinine 0.8 Estimated GFR (MDRD) 98 Glucose 108 H Lactic Acid Calcium 8.7 Total Bilirubin 0.7 AST 13 ALT 14 Alkaline Phosphatase 155 H Total Protein 8.4 H Albumin 3.8 Globulin 4.6 H Albumin/Globulin Ratio 0.8 L Lipase 27 09/16/19 10:06 WBC RBC Hgb Hct MCV MCH MCHC RDW Plt Count MPV Neut # (Auto) Lymph # (Auto) [place] # (Auto) Eos # (Auto) Baso # (Auto) Absolute Nucleated RBC Nucleated RBC % PT INR Sodium Potassium Chloride Carbon Dioxide Anion Gap BUN Creatinine Estimated GFR (MDRD) Glucose Lactic Acid 1.0 Calcium Total Bilirubin AST ALT Alkaline Phosphatase Total Protein Albumin Globulin Albumin/Globulin Ratio Lipase - Rads (name of study) chest 2 view Radiology: Prelim report reviewed (Impression: 1. Right-sided pleural effusion with right basal atelectasis. 2 Right mid zone lesion seen on prior x-ray, is still present. The differential diagnosis includes neoplasia and consolidation.), EMP read indepedently, See rad report CT chest w Radiology: Prelim report reviewed (Impression: 1. Centrilobular emphysema. 2 Subpleural soft tissue mass with spiculated margins in the inferolateral right upper lobe appearance highly suspicious for primary lung malignancy recommend tissue sampling. 3 Several scattered sub-centimeter pulmonary nodules, nonspecific. 4 Consolidation in the basilar portions of the right middle and lower lobes more likely atelectasis less likely infection. 5 Small right pleural effusion. 6 Incidental complex left renal cystic lesion with intermediate attenuation proteinaceous versus soft tissues superior component. Recommend further characterization with renal protocol MRI abdomen with and without contrast.), EMP read indepedently, See rad report PD MEDICAL DECISION MAKING - ED course Complexity details: reviewed old records, reviewed results, re-evaluated patient, considered differential, d/w patient, d/w family ED course: 64-year-old male with cough and congestion has increasing right-sided chest pain and a mass on his chest x-ray. Today he is here because of the pain in the chest with each breath. He has a requistion for a CT of the chest with contrast and this is done here today showing a spiculated mass that appears pleural based along with atelectasis bibasilar. The patient is treated with toradal and decadron with marked improvement. He is administered IV rocephin as he has had fever with this and infection is still in the differential. I have consulted his primary Dr. Espinoza who will refer the patient for biopsy. In the mean time we will provide pain relief and place him on antibiotic. Departure - Departure Disposition: 01 Home, Self Care Clinical Impression: Lung mass, Bronchitis Condition: Stable Instructions: ED Upper Resp Infec Abx Tx, Biopsy Needle Lung Dc, Cancer Lung Follow-Up: Richardson Espinoza DO [Primary Care Provider] - Prescriptions: Azithromycin [Zithromax] 250 mg PO DAILY #6 tablet Hydrocodone/Acetaminophen [Hydrocodon-Acetaminophen 5-325] 1 - 2 each PO Q6H PRN #14 tablet PRN Reason: pain
--- NOTE | 2019-09-16 11:47 | CT Report ---
Reason: mass Procedure Date: 09/16/2019 Accession Number: [id number] / [id number] Procedure: CT - CHEST W CPT Code: Final Report FULL RESULT: EXAM: CT CHEST EXAM DATE: 09/16/2019 10:54 AM. CLINICAL HISTORY: Mass versus infiltrate versus consolidation on chest x-ray. COMPARISONS: CHEST 2 VIEW 09/16/2019 9:13 AM CHEST 2 VIEW 09/10/2019 1:07 PM. TECHNIQUE: Routine helical CT imaging was performed through the chest. IV contrast: 80 mL Optiray 320. Reconstructions: Coronal and sagittal. In accordance with CT protocol optimization, one or more of the following dose reduction techniques were utilized for this exam: automated exposure control, adjustment of mA and/or KV based on patient size, or use of iterative reconstructive technique. FINDINGS: Thyroid Gland: Normal as visualized. Lungs/Pleura: Centrilobular emphysema biapical bullae, left greater than right. Subpleural soft tissue mass with spiculated margins in the inferolateral right upper lobe measuring 4.2 x 2.8 x 2.8 cm (4/171, 7/49). Several scattered nodules elsewhere, including a 4 mm nodule in the posterolateral right upper lobe (4/109), a 4 mm subpleural nodule in the lateral left upper lobe (4/80), and a 3 mm subpleural nodule in the lateral left upper lobe (4/118). Consolidation in the basilar portions of the right middle and lower lobes. Small right pleural effusion. Linear left basilar atelectasis. Heart and Great Vessels: Heart size is normal. No pericardial effusion. Trace atherosclerotic calcifications within the aorta. Ectatic ascending aorta measuring 4.2 cm in diameter. The visualized central pulmonary arteries are unremarkable. Thoracic Lymph Nodes: Several prominent mediastinal nodes, the largest a 1.5 x 1.2 cm subcarinal node (3/48). No adenopathy by CT size criteria. Bones: Mid thoracic spine DISH. No acute bony abnormality. Visualized Abdomen: Post cholecystectomy. Complex left renal cystic lesion measuring 3.5 x 2.6 x 2.9 cm (7/79, 3/110) with intermediate attenuation superior component (/). Other: None. IMPRESSION: 1. Centrilobular emphysema. 2. Subpleural soft tissue mass with speculated margins in the inferolateral right upper lobe, appearance highly suspicious for primary lung malignancy. Recommend tissue sampling. 3. Several scattered subcentimeter pulmonary nodules, nonspecific. 4. Consolidation in the basilar portions of the right middle and lower lobes, more likely atelectasis, less likely infection. 5. Small right pleural effusion. 6. Incidental complex left renal cystic lesion with intermediate attenuation proteinaceous versus soft tissue superior component. Recommend further characterization with renal protocol MRI abdomen with/without contrast. RADIA
[2019-09-16 11:59] VITALS: BP 124/76
== END 2019-09-16 14:33 | disposition home or self-care (01) ==
LOC: ED 08:23
DX: R91.8 Other nonspecific abnormal finding of lung field (principal); J40 Bronchitis, not specified as acute or chronic; J43.2 Centrilobular emphysema; J90 Pleural effusion, not elsewhere classified; N28.1 Cyst of kidney, acquired; I10 Essential (primary) hypertension; Z79.82 Long term (current) use of aspirin
CPT/HCPCS: 36415; 71046; 71260; 80053; 83605; 83690; 85025; 85610; 87040; 96365; 96375; 99284; Q9967

== ENCOUNTER 2020-06-03 07:52 | Emergency (ER) | payer MEDICARE, OTHER ==
--- NOTE | 2020-06-03 08:04 | ED Physician Documentation ---
PD HPI BACK PAIN - Stated complaint Stated Complaint: LOW BACK PX - History obtained from History obtained from: Patient - History of Present Illness Timing - onset: How many days ago (2) Timing - duration: Days (2) Timing - details: Abrupt onset (He has chronic ongoing low back pain. He is putting his sock on with a slight twist and felt a abrupt worsening of pain 2 days ago that has persisted. No fall or impact. No fevers. No numbness or tingling in the legs.) Location: Lower, Left Quality: Pain, Spasm Associated symptoms: No: Fever, Weakness, Numbness, Incontinent of urine Worsened by: Movement, Twisting Contributing factors: Twisting. No: Trauma Similar symptoms before: Diagnosis (HNP significantly, nonsurgical per back specialist, so just treats the pain chronically. No regular opioids.) Recently seen: Not recently seen Review of Systems Constitutional: denies: Fever, Chills Nose: denies: Rhinorrhea / runny nose, Congestion Throat: denies: Sore throat Cardiac: denies: Chest pain / pressure Respiratory: denies: Dyspnea, Cough GI: denies: Abdominal Pain, Nausea, Vomiting Musculoskeletal: reports: Back pain Neurologic: denies: Focal weakness, Numbness PD PAST MEDICAL HISTORY - Past Medical History Cardiovascular: Hypertension, Arrhythmia Respiratory: COPD, Shortness of breath, Other Endocrine/Autoimmune: None GI: GERD, Colon polyps : Frequency HEENT: Chronic sinusitis Psych: Post traumatic stress disorder Musculoskeletal: Osteoarthritis, Chronic back pain Derm: None - Past Surgical History Past Surgical History: Yes General: Cholecystectomy, Colonoscopy, EGD Ortho: Hip replacement Derm: Skin cancer surgery - Present Medications Home Medications: Ambulatory Orders Medication Instructions Recorded Confirmed Cholecalciferol (Vitamin D3) 1,000 unit PO DAILY 04/06/13 09/01/17 [Vitamin D] EPINEPHrine [Epipen] 0.3 mg IM ONCE 04/06/13 09/01/17 Nortriptyline HCl 50 mg PO HS 04/06/13 08/31/17 Omeprazole 20 mg PO DAILY 04/06/13 08/31/17 hydroCHLOROthiazide 25 mg PO DAILY 08/31/17 08/31/17 [Hydrochlorothiazide] Aspirin 81 mg DAILY 09/16/19 09/16/19 Potassium &Magnesium Aspartate [Ra 2 tab QPM 09/16/19 09/16/19 Potassium-Magnesium Asp 250] Simvastatin 5 mg 09/16/19 Valacyclovir HCl [Valtrex] 400 mg DAILY 09/16/19 09/16/19 [id number] CD [Cardizem Cd] 240 mg DAILY 09/16/19 09/16/19 Acyclovir/Hydrocortisone [Xerese 5 gm TP 06/03/20 5%-1% Cream] Betamethasone Valerate 15 gm TP 06/03/20 Hydrocodone/Acetaminophen 1 each PO Q6H PRN #20 tablet 06/03/20 [Hydrocodone-Acetamin 5-325 mg] Triamcinolone Acetonide 0.1% 1 gm TP 06/03/20 [Triamcinolone Acetonide] dexAMETHasone [Decadron] 4 mg PO DAILY #5 tablet 06/03/20 - Allergies Allergies/Adverse Reactions: Allergies Allergy/AdvReac Type Severity Reaction Status Date / Time morphine Allergy Severe Emesis Verified 06/03/20 08:05 latex Allergy Intermediate Rash Verified 06/03/20 08:05 pseudoephedrine HCl * Allergy Intermediate Rash Verified 06/03/20 08:05 [From Sudafed] bee sting AdvReac Severe Respiratory Uncoded 06/03/20 08:05 - Social History Does the pt smoke?: No Smoking Status: Never smoker Does the pt drink ETOH?: No Does the pt have substance abuse?: No - Immunizations Immunizations are current?: Yes Immunizations: TDAP current <10years - POLST Patient has POLST: No PD ED PE NORMAL - Vitals Vital signs reviewed: Yes - General General: Alert and oriented X 3, Well developed/nourished, Other (He is standing guardedly and states it is more uncomfortable to sit. The back is without any focal tenderness.) - Derm Derm: Normal color, Warm and dry, No rash - Extremities Extremities: No edema, No calf tenderness / cord - Neuro Neuro: Alert and oriented X 3, No motor deficit, Normal speech Results - Vitals Vitals: Vital Signs - 24 hr 06/03/20 06/03/20 08:00 09:08 Temperature 36.4 C L Heart Rate 81 112 H Respiratory 16 16 Rate Blood Pressure 121/61 120/85 H O2 Saturation 99 95 Oxygen O2 Source Room air PD MEDICAL DECISION MAKING - ED course Complexity details: considered differential (No red flags to suggest need for testing or imaging. We will treat as exacerbation of back pain related to disc disease.), d/w patient Departure - Departure Disposition: 01 Home, Self Care Clinical Impression: Acute exacerbation of chronic low back pain Condition: Stable Record reviewed to determine appropriate education?: Yes Instructions: ED Sciatica Follow-Up: Richardson Espinoza DO [Primary Care Provider] - Prescriptions: dexAMETHasone [Decadron] 4 mg PO DAILY #5 tablet Hydrocodone/Acetaminophen [Hydrocodone-Acetamin 5-325 mg] 1 each PO Q6H PRN #20 tablet PRN Reason: Pain Comments: Heat and gentle stretching for the back. Physical treatments such as chiropractic and massage are good. Following up with your primary care for manipulative treatment is also good. Continue your muscle relaxants as needed. Add Decadron anti-inflammatory daily for several days. To that add Tylenol or hydrocodone with Tylenol every 4-6 hours as needed for pain in the short-term. Discharge Date/Time: 06/03/20 09:12
[2020-06-03] MEDS ORDERED: KETOROLAC 30 MG/ML VIAL IM STA (08:25)
[2020-06-03] MEDS ORDERED: HYDROmorphone 2 MG/ML VIAL IM STA (08:25)
[2020-06-03] MEDS ORDERED: DEXAMETHASONE 10 MG/ML VIAL PO STA (08:26)
[2020-06-03] MEDS ORDERED: CHERRY SYRUP 10 ML UDC PO ONE (08:26)
[2020-06-03 09:08] VITALS: BP 120/85
== END 2020-06-03 09:12 | disposition home or self-care (01) ==
LOC: ED 07:52
DX: M54.5 Low back pain (principal); I10 Essential (primary) hypertension; J44.9 Chronic obstructive pulmonary disease, unspecified
CPT/HCPCS: 96372; 99283; A9270; J1170